=== PATIENT | female | born 1995 | race Caucasian/White ===

== ENCOUNTER 2025-02-13 14:36 | Outpatient (CLI) | payer OTHER | END 2025-02-13 14:53 | disposition home or self-care (01) | LOC: NST 14:36 | PROVIDERS: ATTEND Obstetrics & Gynecology Maternal & Fetal Medicine | DX: Z3A.32 32 weeks gestation of pregnancy (principal) ==

== ENCOUNTER 2025-02-20 17:54 | Inpatient (IN) | payer OTHER ==
[~2025-02-20] VITALS: Ht 162.6 cm; Wt 83.0 kg
[2025-02-20] MEDS ORDERED: INDOMETHACIN 50 MG CAPSULE PO ONE (18:30)
[2025-02-20] MEDS ORDERED: RINGERS SOLUTION,LACTATED 1,000 ML IV SCH (18:30)
[2025-02-20] MEDS ORDERED: MAGNESIUM SULFATE IN WATER 100 ML IV SCH (18:30)
[2025-02-20] MEDS ORDERED: MAGNESIUM SULFATE IN WATER 50 ML IV SCH (18:30)
[2025-02-20] MEDS ORDERED: BETAMETHASONE ACETATE,SOD PHOS 30 MG/5 ML ML IM ONE (18:30)
[2025-02-20 18:43] LABS: URINE APPEARANCE Clear; URINE BACTERIA 201.8 uL (0.0-1933); URINE BILIRRUBIN Negative (NEGATIVE); URINE BLOOD Large; URINE COLOR Yellow; URINE EPITHELIAL CELLS 29.1 uL (0.0-38.8); URINE GLUCOSE Negative (NEGATIVE); URINE KETONE Negative (NEGATIVE); URINE LEUKOCYTE Moderate; URINE NITRATE Negative; URINE PROTEIN Negative (NEGATIVE); URINE UROBILINOGEN 0.2 E.U./dl; URINE WBC 40.6 uL (0.0-23.2)
[2025-02-20 18:44] LABS: URINE CAST 0.14 uL (0.0-1.40)
[2025-02-20 19:05] LABS: INR < 0.93; PARTIAL THROMBOPLASTIN TIME 25.4 SECONDS (22.0-34.0); PROTHROMBIN TIME 10.2 SECONDS (9.0-11.5)
[2025-02-20 19:11] VITALS: BP 103/66
[2025-02-20] MEDS ORDERED: PRENATABS FA T1 EACH PO (19:35)
[2025-02-20 19:40] LABS: ALBUMIN 2.8 gm/dL (3.4-5.0); BILIRUBIN TOTAL 0.2 mg/dL (0.3-1.2); CALCIUM 8.5 mg/dL (8.5-10.1); CREATININE SERUM 0.47 mg/dL (0.55-1.02); GFR 154.56; GLOBULINA 3.1 G/DL (2.4-3.5); POTASSIUM 3.72 mEq/L (3.5-5.1); TOTAL PROTEIN 5.9 gm/dL (6.4-8.2)
[2025-02-20 19:44] VITALS: BP 99/62
[2025-02-20 19:46] LABS: HEMATOCRIT 33.2 % (34.1-44.9); HEMOGLOBIN 11.4 g/dL (11.2-15.7); LYMPH % 16.9 % (19.3-53.1); MEAN CORPUSCULAR HEMOGLOBIN 30.3 pg (25.6-32.2); NEUT % 70.8 % (34.0-71.1); PLATELET COUNT 246 K/uL (163-369); RED BLOOD COUNT 3.76 M/uL (3.93-5.22)
[2025-02-20 19:47] LABS: BASO % 0.5 % (0.1-1.2); EOS % 2.1 % (0.7-7.0); MONO % 9.1 % (4.7-12.5)
[2025-02-20 23:29] VITALS: BP 101/57
[2025-02-21] MEDS ORDERED: INDOMETHACIN 25 MG CAPSULE PO SCH (01:00)
[2025-02-21 04:00] VITALS: BP 94/57
[2025-02-21 06:22] VITALS: BP 97/60; O2SAT 97
[2025-02-21 09:00] VITALS: BP 105/69
[2025-02-21] MEDS ORDERED: NIFEDIPINE 30 MG TAB.SA.OSM PO SCH (09:00)
[2025-02-21 11:10] VITALS: BP 90/60
[2025-02-21 15:55] VITALS: BP 101/59
[2025-02-21] MEDS ORDERED: BETAMETHASONE ACETATE,SOD PHOS 30 MG/5 ML ML IM NR (18:30)
[2025-02-21] MEDS ORDERED: MAGNESIUM SULFATE IN WATER 500 ML IV SCH (18:30)
[2025-02-22 00:39] VITALS: BP 105/65
[2025-02-22 09:17] VITALS: BP 102/63; O2SAT 98
[2025-02-22 13:17] VITALS: BP 103/67; O2SAT 99
[2025-02-22 16:03] VITALS: BP 104/67
[2025-02-23] VITALS: BP 90/58
[2025-02-23 09:00] VITALS: BP 102/60
== END 2025-02-23 09:08 | disposition home or self-care (01) | DRG 833 ==
LOC: NST 17:54 → OB/GYN 17:58 → LDR 17:58 → OB/GYN 02-21 09:08
PROVIDERS: ADMIT Obstetrics & Gynecology Gynecology; ATTEND Obstetrics & Gynecology Gynecology
PROC: 4A1HXCZ Monitoring of Products of Conception, Cardiac Rate, External Approach (ICD-10-PCS; principal; 2025-02-20)
DX: O60.03 Preterm labor without delivery, third trimester (principal); O32.1XX0 Maternal care for breech presentation, not applicable or unspecified; Z3A.33 33 weeks gestation of pregnancy

== ENCOUNTER 2025-02-28 09:14 | Outpatient (CLI) | payer OTHER ==
[~2025-02-28 09:14] MED LIST: PRENATABS FA T1 EACH PO
== END 2025-02-28 10:12 | disposition home or self-care (01) ==
LOC: NST 09:14
PROVIDERS: ATTEND Obstetrics & Gynecology Gynecology
DX: Z34.83 Encounter for supervision of other normal pregnancy, third trimester (principal)

== ENCOUNTER 2025-03-07 15:17 | Outpatient (CLI) | payer OTHER | END 2025-03-07 16:20 | disposition home or self-care (01) | LOC: NST 15:17 | PROVIDERS: ATTEND Obstetrics & Gynecology Gynecology | DX: Z34.83 Encounter for supervision of other normal pregnancy, third trimester (principal) ==

== ENCOUNTER 2025-03-13 16:21 | Inpatient (IN) | payer OTHER ==
[~2025-03-13] VITALS: Ht 162.6 cm; Wt 83.5 kg
[2025-03-13 18:02] VITALS: BP 109/73
[2025-03-13] MEDS ORDERED: RINGERS SOLUTION,LACTATED 1,000 ML IV SCH (18:15)
[2025-03-13 18:54] LABS: BASO % 0.5 % (0.1-1.2); EOS # 0.08 (0.04-0.54); EOS % 0.8 % (0.7-7.0); HEMATOCRIT 35.1 % (34.1-44.9); HEMOGLOBIN 12.3 g/dL (11.2-15.7); LYMPH # 1.89 (1.18-3.74); LYMPH % 18.5 % (19.3-53.1); MEAN CORPUSCULAR HEMOGLOBIN 30.8 pg (25.6-32.2); MONO # 0.86 (0.24-0.82); MONO % 8.4 % (4.7-12.5); NEUT # 7.31 (1.56-6.13); NEUT % 71.5 % (34.0-71.1); PLATELET COUNT 204 K/uL (163-369); RED CELL DISTRIBUTION WIDTH 12.8 % (11.6-14.4)
[2025-03-13 19:11] LABS: INR < 0.93; PARTIAL THROMBOPLASTIN TIME 25.4 SECONDS (22.0-34.0); PROTHROMBIN TIME 9.8 SECONDS (9.0-11.5)
[2025-03-13 19:14] LABS: ALBUMIN 2.8 gm/dL (3.4-5.0); BILIRUBIN TOTAL 0.2 mg/dL (0.3-1.2); CALCIUM 9.2 mg/dL (8.5-10.1); CREATININE SERUM 0.56 mg/dL (0.55-1.02); GFR 126.26; GLOBULINA 3.5 G/DL (2.4-3.5); POTASSIUM 3.92 mEq/L (3.5-5.1); TOTAL PROTEIN 6.3 gm/dL (6.4-8.2)
[2025-03-13 20:00] VITALS: BP 113/72
[2025-03-13] MEDS ORDERED: MAGNESIUM SULFATE IN WATER 0.04 GM/ML IV.SOLN IV ONE (20:13)
[2025-03-13] MEDS ORDERED: MAGNESIUM SULFATE IN WATER 4 GM/100 ML PIGGYBACK IV ONE (20:13)
[2025-03-13] MEDS ORDERED: MAGNESIUM SULFATE IN WATER 100 ML IV ONE (21:30)
[2025-03-13] MEDS ORDERED: MAGNESIUM SULFATE IN WATER 500 ML IV SCH (21:30)
[2025-03-13 23:21] VITALS: BP 111/72
[2025-03-14] VITALS (7 sets, daily range): BP systolic 93–113; BP diastolic 54–73; O2SAT 97
[2025-03-14] MEDS ORDERED: MAGNESIUM SULFATE IN WATER 500 ML IV SCH (15:30)
[2025-03-15 04:29] VITALS: BP 108/69
[2025-03-15 06:24] VITALS: BP 109/56; O2SAT 97
[2025-03-15] MEDS ORDERED: ERYTHROMYCIN BASE OPHT 1GM EACH TUBE OP ONE (08:45)
[2025-03-15] MEDS ORDERED: OXYTOCIN 10 UNITS/ML VIAL ONE ×2 (08:45→13:19)
[2025-03-15] MEDS ORDERED: CEFAZOLIN SODIUM 1,000 MG VIAL IV SCH (09:00)
[2025-03-15] MEDS ORDERED: MORPHINE SULFATE 4 MG/ML CARTRIDGE IV SCH (09:11)
[2025-03-15] MEDS ORDERED: OXYTOCIN 1,000 ML IV ONE (09:15)
[2025-03-15] MEDS ORDERED: CEFAZOLIN SODIUM 1,000 MG VIAL ONE (09:46)
[2025-03-15] MEDS ORDERED: KETOROLAC TROMETHAMINE 30 MG VIAL IV NR (10:00)
[2025-03-15] MEDS ORDERED: GABAPENTIN 300 MG CAPSULE PO NR (10:00)
[2025-03-15] MEDS ORDERED: PNV,CALCIUM 72/IRON/FOLIC ACID 1 TAB TABLET PO NR (10:00)
[2025-03-15] MEDS ORDERED: DOCUSATE SODIUM 100MG CAP PO SCH (12:00)
[2025-03-15] MEDS ORDERED: MORPHINE SULFATE 4 MG/ML VIAL IV ONE (12:45)
[2025-03-15] MEDS ORDERED: KETOROLAC TROMETHAMINE 30 MG VIAL ONE (13:11)
[2025-03-15] MEDS ORDERED: KETOROLAC TROMETHAMINE 30 MG VIAL IV ONE (13:15)
[2025-03-15 13:57] VITALS: BP 100/69; O2SAT 99
[2025-03-15] MEDS ORDERED: KETOROLAC TROMETHAMINE 30 MG VIAL IV SCH (14:00)
[2025-03-15 16:39] VITALS: BP 105/65; O2SAT 97
[2025-03-15] MEDS ORDERED: GABAPENTIN 300 MG CAPSULE PO SCH (17:00)
[2025-03-15] MEDS ORDERED: ACETAMINOPHEN 500 MG GEL..CAP PO SCH (18:00)
[2025-03-16] VITALS: BP 120/76
[2025-03-16 07:12] LABS: BASO % 0.5 % (0.1-1.2); EOS # 0.05 (0.04-0.54); EOS % 0.5 % (0.7-7.0); HEMOGLOBIN 10.9 g/dL (11.2-15.7); LYMPH # 2.04 (1.18-3.74); LYMPH % 19.2 % (19.3-53.1); MEAN CORPUSCULAR HEMOGLOBIN 30.6 pg (25.6-32.2); MONO # 0.93 (0.24-0.82); MONO % 8.7 % (4.7-12.5); NEUT # 7.53 (1.56-6.13); NEUT % 70.8 % (34.0-71.1); PLATELET COUNT 163 K/uL (163-369); RED BLOOD COUNT 3.56 M/uL (3.93-5.22); RED CELL DISTRIBUTION WIDTH 12.9 % (11.6-14.4)
[2025-03-16 08:43] VITALS: BP 114/66
[2025-03-16] MEDS ORDERED: SIMETHICONE 125 MG CAPSULE PO SCH (09:00)
[2025-03-16] MEDS ORDERED: PNV,CALCIUM 72/IRON/FOLIC ACID 1 TAB TABLET PO SCH (09:00)
[2025-03-16] MEDS ORDERED: IBUprofen 600 MG TABLET PO SCH (12:00)
[2025-03-16 13:26] VITALS: BP 122/75
[2025-03-16 17:24] VITALS: BP 99/63; O2SAT 96
[2025-03-17 01:00] VITALS: BP 118/71
[2025-03-17 08:00] VITALS: BP 108/60; O2SAT 98
== END 2025-03-17 14:18 | disposition home or self-care (01) | DRG 786 ==
LOC: OBS/DEL 16:21 → NST 16:21 → OBS/DEL 17:58 → OB/GYN 03-14 09:21 → LDR 03-14 09:21 → OB/GYN 03-15 08:32
PROVIDERS: ADMIT Obstetrics & Gynecology Gynecology; ATTEND Obstetrics & Gynecology Gynecology
PROC: 10D00Z1 Extraction of Products of Conception, Low, Open Approach (ICD-10-PCS; principal; 2025-03-14)
PROC: 4A1HXCZ Monitoring of Products of Conception, Cardiac Rate, External Approach (ICD-10-PCS; 2025-03-14)
DX: O32.1XX0 Maternal care for breech presentation, not applicable or unspecified (principal); O60.14X0 Preterm labor third trimester with preterm delivery third trimester, not applicable or unspecified; Z3A.36 36 weeks gestation of pregnancy; Z37.0 Single live birth

== ENCOUNTER 2025-04-22 08:36 | Emergency (ER) | payer OTHER ==
[~2025-04-22] VITALS: Ht 162.6 cm; Wt 72.6 kg
[2025-04-22 10:22] VITALS: BP 90/60; O2SAT 100
[2025-04-22] MEDS ORDERED: DIATRIZOATE MEGLUMINE, SODIUM 30 ML BOTTLE ONE (11:03)
[2025-04-22 11:23] LABS: BASO % 0.6 % (0.1-1.2); EOS # 0.29 (0.04-0.54); EOS % 2.5 % (0.7-7.0); LYMPH # 2.29 (1.18-3.74); LYMPH % 19.5 % (19.3-53.1); MEAN PLATELET VOLUME 10.00 fl (9.4-12.4); MONO # 1.07 (0.24-0.82); MONO % 9.1 % (4.7-12.5); NEUT # 7.98 (1.56-6.13); NEUT % 68.0 % (34.0-71.1); RED CELL DISTRIBUTION WIDTH 12.6 % (11.6-14.4)
[2025-04-22 11:27] LABS: URINE APPEARANCE Clear; URINE BILIRRUBIN Negative (NEGATIVE); URINE BLOOD Negative; URINE COLOR Yellow; URINE GLUCOSE Negative (NEGATIVE); URINE KETONE Negative (NEGATIVE); URINE LEUKOCYTE Trace; URINE NITRATE Negative; URINE PROTEIN Trace (NEGATIVE); URINE UROBILINOGEN 0.2 E.U./dl
[2025-04-22 11:31] LABS: URINE BACTERIA 304.7 uL (0.0-1933); URINE EPITHELIAL CELLS 35.6 uL (0.0-38.8); URINE RBC 9.9 uL (0.0-20.8); URINE WBC 20.4 uL (0.0-23.2)
[2025-04-22 11:44] LABS: COVID-19 AG NEGATIVE (NEGATIVE)
[2025-04-22 11:51] LABS: URINE CAST 0.00 uL (0.0-1.40)
[2025-04-22 12:05] LABS: ALT/SGPT 18.0 U/L (12-78); AST/SGOT 12.0 U/L (15-37); BILIRUBIN TOTAL 0.39 mg/dL (0.3-1.2); BUN CREA RATIO 22.0 (7.0-25.0); CREATININE SERUM 0.67 mg/dL (0.55-1.02); GFR 102.66; GLOBULINA 3.3 G/DL (2.4-3.5); GLUCOSE FASTING 104.0 mg/dL (65-100); OSMOLALITY SERUM 281.0 MOSM/KG (275-295)
== END 2025-04-22 15:39 | disposition home or self-care (01) ==
LOC: ER 08:36
PROVIDERS: Emergency Medicine
DX: R50.9 Fever, unspecified (principal); R10.2 Pelvic and perineal pain; Z20.822 Contact with and (suspected) exposure to COVID-19
CPT/HCPCS: 36415; 74177; Q9965